=== PATIENT | male | born 1980 | race Caucasian/White ===

== ENCOUNTER 2019-01-17 23:16 | Emergency (ER) | payer BC ==
[~2019-01-17] VITALS: Ht 177.8 cm; Wt 113.4 kg
[2019-01-17] MEDS ORDERED: EFFEXOR25 MG (23:18)
[2019-01-17 23:19] VITALS: Ht 177.8 cm; Wt 113.4 kg
[2019-01-17] MEDS ORDERED: TRAZODONE HCL150 MG PO (23:19)
[2019-01-17 23:32] LABS: HEMOGLOBIN 15.8 g/dL (13.5-17.5); LYMPHOCYTES 52.9 % (15-50); MCH 31.5 pg (26.0-34.0); MCHC 34.3 g/dL (31.0-37.0); MCV 91.6 fL (80.0-100.0); MEAN PLATELET VOLUME 9.9 fL (7.4-10.4); PLATELET COUNT 124 10x3/uL (130-400); RBC 5.02 10x6/uL (4.20-6.10); RDW 12.5 % (11.5-14.5); WBC 4.7 10x3/uL (4.8-10.8)
[2019-01-17 23:58] LABS: ALBUMIN 3.8 g/dL (3.4-5.0); ALKALINE PHOSPHATASE 95 U/L (46-116); ALT (SGPT) 319 U/L (10-68); AMYLASE - SERUM 48 U/L (25-115); BILIRUBIN - TOTAL 0.37 mg/dL (0.2-1.3); CALC OSMOLALITY 277 mosm/kg (275-300); CARBON DIOXIDE 28.9 mmol/L (21.0-32.0); CHLORIDE - SERUM 105 mmol/L (98-107); CREATININE - SERUM 1.2 mg/dL (0.6-1.3); GLUCOSE 98 mg/dL (74-106); LIPASE 184 U/L (73-393); POTASSIUM - SERUM 3.8 mmol/L (3.5-5.1); SODIUM 140 mmol/L (136-145); UREA NITROGEN 11 mg/dL (7-18); eGFR NON AFRICAN AMERICAN 73 mL/min (90-120)
[2019-01-18 00:01] LABS: TROPONIN-I < 0.017 ng/mL (0.000-0.060)
[2019-01-18] MEDS ORDERED: ZOFRAN8 MG PO (00:58)
[2019-01-18] MEDS ORDERED: FLOMAX0.4 MG PO (00:58)
[2019-01-18] MEDS ORDERED: TORADOL10 MG PO (00:58)
[2019-01-18 01:16] LABS: APPEARANCE HAZY (CLEAR); BILIRUBIN NEGATIVE (NEGATIVE); COLOR YELLOW (YELLOW); GLUCOSE NEGATIVE (NEGATIVE); KETONE NEGATIVE (NEGATIVE); NITRITE NEGATIVE (NEGATIVE); PROTEIN NEGATIVE (NEGATIVE); SPECIFIC GRAVITY 1.015 (1.005-1.020); UROBILINOGEN NORMAL (NORMAL)
[2019-01-18 01:17] LABS: AMORPHOUS SEDIMENT >1+ /lpf (NONE SEEN); BACTERIA MODERATE /hpf (NONE SEEN); EPITHELIAL CELLS 0-5 /hpf (0-5); RED CELLS - URINE 0-5 /hpf (0-5); WHITE CELLS - URINE 0-5 /hpf (0-5)
[2019-01-18 01:33] VITALS: BP 132/89
== END 2019-01-18 01:33 | disposition home or self-care (01) ==
LOC: D.ER 23:16
PROVIDERS: Family Medicine
DX: R10.9 Unspecified abdominal pain (principal); N20.0 Calculus of kidney

== ENCOUNTER 2020-09-04 08:53 | Emergency (ER) | payer BC ==
[~2020-09-04] VITALS: Ht 177.8 cm; Wt 95.5 kg
[~2020-09-04 08:53] MED LIST: EFFEXOR25 MG; FLOMAX0.4 MG PO; TORADOL10 MG PO; TRAZODONE HCL150 MG PO; ZOFRAN8 MG PO
[2020-09-04 09:08] VITALS: Ht 177.8 cm; Wt 95.5 kg
[2020-09-04 10:10] LABS: BASOPHILS 0.1 % (0-2); EOSINOPHILS 0.3 % (0-7); HEMATOCRIT 47.5 % (42.0-54.0); HEMOGLOBIN 16.4 g/dL (13.5-17.5); IMMATURE GRANULOCYTES 0.1 % (0-5); LYMPHOCYTE ABS# 0.82 10x3/uL (1.32-3.57); LYMPHOCYTES 11.5 % (15-50); MCH 30.8 pg (26.0-34.0); MCHC 34.5 g/dL (31.0-37.0); MCV 89.1 fL (80.0-100.0); MEAN PLATELET VOLUME 10.3 fL (7.4-10.4); MONOCYTES 4.1 % (2-11); NEUTROPHIL ABS# 5.97 10x3/uL (1.78-5.38); NEUTROPHILS 83.9 % (40-80); RBC 5.33 10x6/uL (4.20-6.10); RDW 12.6 % (11.5-14.5); WBC 7.1 10x3/uL (4.8-10.8)
[2020-09-04 10:12] LABS: PLATELET COUNT 151 10x3/uL (130-400)
[2020-09-04 10:13] LABS: CALC OSMOLALITY 278 mosm/kg (275-300); CALCIUM 9.3 mg/dL (8.5-10.1); CARBON DIOXIDE 21.2 mmol/L (21.0-32.0); CHLORIDE - SERUM 105 mmol/L (98-107); GLUCOSE 115 mg/dL (74-106); POTASSIUM - SERUM 3.9 mmol/L (3.5-5.1); SODIUM 139 mmol/L (136-145); UREA NITROGEN 13 mg/dL (7-18); eGFR NON AFRICAN AMERICAN 89 mL/min (90-120)
[2020-09-04 10:20] LABS: ALBUMIN 3.8 g/dL (3.4-5.0); ALKALINE PHOSPHATASE 72 U/L (30-120); ALT (SGPT) 19 U/L (10-68); BILIRUBIN - TOTAL 0.52 mg/dL (0.2-1.3); LIPASE 78 U/L (73-393)
[2020-09-04] MEDS ORDERED: ZOFRAN ODT4 MG/UDTAB PO (11:23)
[2020-09-04 11:31] VITALS: BP 119/53
== END 2020-09-04 11:32 | disposition home or self-care (01) ==
LOC: D.ER 08:53
PROVIDERS: Emergency Medicine
DX: K52.9 Noninfective gastroenteritis and colitis, unspecified (principal)